=== PATIENT | male | born 2000 | race Caucasian/White ===

== ENCOUNTER → 2023-12-26 | Outpatient (CLI) | payer OTHER ==
[2023-12-26 12:46] LABS: IMMUNOGLOBULIN A 274.5 MG/DL (40-350)
[2023-12-26 12:50] LABS: FREE T4 1.19 NG/DL (0.89-1.76); THYROID STIMULATING HORMONE 2.346 uIU/ML (0.55-4.78)
== END ==
LOC: M LAB 11:46
PROVIDERS: ATTEND Internal Medicine Gastroenterology
DX: R19.4 Change in bowel habit (principal)

== ENCOUNTER → 2024-01-03 | Outpatient (CLI) | payer OTHER | LOC: M CARPUL 14:54 → EDUNIT# 01-04 09:00 | PROVIDERS: ATTEND Internal Medicine Critical Care Medicine | DX: R06.00 Dyspnea, unspecified (principal) ==

== ENCOUNTER → 2024-01-17 | Outpatient (CLI) | payer OTHER ==
[~2024-01-17] MED LIST: VITA100093 PO
== END ==
LOC: M PLALAB 15:56
PROVIDERS: ATTEND Obstetrics & Gynecology
DX: Z13.79 Encounter for other screening for genetic and chromosomal anomalies (principal)

== ENCOUNTER 2024-01-28 09:59 | Day surgery (SDC) | payer OTHER ==
[~2024-01-28] VITALS: Ht 167.6 cm; Wt 93.4 kg
[2024-01-28] MEDS: NS 1,000 ML IV ONE (11:40)
[2024-01-28] MEDS ORDERED: LIDOCAINE 2% 100MG/5ML SDV (FOR ANES.) As Ordered ONE (12:37)
[2024-01-28] MEDS ORDERED: fentaNYL 100 MCG/2 ML INJECTION As Ordered ONE (12:37)
[2024-01-28] MEDS ORDERED: propofoL 200 MG/20 ML VIAL As Ordered ONE (12:38)
[2024-01-28 14:20] VITALS: BP 125/74; O2SAT 96
== END 2024-01-28 14:32 | disposition home or self-care (01) ==
LOC: M OPP 09:59 → EDUNIT# 13:00 → M OPP 14:32
PROVIDERS: ATTEND Internal Medicine Gastroenterology
DX: K51.40 Inflammatory polyps of colon without complications (principal); K64.8 Other hemorrhoids; K92.1 Melena; K21.00 Gastro-esophageal reflux disease with esophagitis, without bleeding; R12 Heartburn; F17.220 Nicotine dependence, chewing tobacco, uncomplicated
CPT/HCPCS: 43239; 45380; 45385; 88305; J3010

== ENCOUNTER → 2024-03-07 | Outpatient (CLI) | payer OTHER ==
[~2024-03-07] MED LIST changes: +METHACHOLINE KIT (6 VIAL.NEB PREMIX) INH ONE
== END ==
LOC: EDUNIT# 01-11 09:00 → M CARPUL 07:31
PROVIDERS: ATTEND Internal Medicine Critical Care Medicine
DX: R06.00 Dyspnea, unspecified (principal)
CPT/HCPCS: 94070; J7674

== ENCOUNTER → 2024-04-24 | Outpatient (CLI) | payer OTHER ==
[~2024-04-24] MED LIST changes: -METHACHOLINE KIT (6 VIAL.NEB PREMIX) INH ONE
== END ==
LOC: M CARPUL 11:14
PROVIDERS: ATTEND Internal Medicine Critical Care Medicine
DX: R06.00 Dyspnea, unspecified (principal)

== ENCOUNTER → 2024-06-30 | Outpatient (CLI) | payer OTHER ==
[~2024-06-30] MED LIST changes: +ISOVUE-370 76% 100ML VIAL As Ordered ONE
== END ==
LOC: M RAD 09:07
PROVIDERS: ATTEND Internal Medicine Gastroenterology
DX: K62.5 Hemorrhage of anus and rectum (principal); K76.0 Fatty (change of) liver, not elsewhere classified
CPT/HCPCS: 74177; Q9967

== ENCOUNTER → 2024-08-02 | Outpatient (CLI) | payer OTHER ==
[~2024-08-02] MED LIST changes: -ISOVUE-370 76% 100ML VIAL As Ordered ONE
[2024-08-02 11:31] LABS: C REACTIVE PROTEIN QUANTITATIV < 0.50 MG/DL (<1.0); CPK CREATINE PHOSPHOKINASE 344 U/L (46-171)
[2024-08-02 11:35] LABS: IMMUNOGLOBULIN E 290.1 IU/ML (0-378)
[2024-08-03 16:16] LABS: ALDOLASE 7.3 U/L (< OR = 8.1)
[2024-08-03 19:45] LABS: BIRCH IGE 2.81 kU/L (<0.10); COMMON RAGWEED SHORT IGE 0.78 kU/L (<0.10); D001 IGE D PTERONYSSINUS < 0.10 kU/L (<0.10); D002-IGE D FARINAE < 0.10 kU/L (<0.10); E005-IGE DOG DANDER 0.52 kU/L (<0.10); ELM IGE 0.99 kU/L (<0.10); I006 IGE COCKROACH 0.17 kU/L (<0.10); IMMUNOGLOBULIN E FOR ALLERGENS 315 kU/L (<OR=114); M002 IGE CLADOSPORIUM HERBARU < 0.10 kU/L (<0.10); M003 IGE ASPERGILLUS FUMIGATU < 0.10 kU/L (<0.10); M006 IGE ALTERNIA ALTERNATA < 0.10 kU/L (<0.10); M1-PENICILLIUM NOTATUM < 0.10 kU/L (<0.10); MOUSE URINE IGE < 0.10 kU/L (<0.10); MUGWORT IGE 0.16 kU/L (<0.10); ROUGH PIGWEED IGE 0.16 kU/L (<0.10); SHEEP SORREL IGE 0.29 kU/L (<0.10); SYCAMORE IGE 0.21 kU/L (<0.10); T001-IGE MAPLE BOX ELDER 0.34 kU/L (<0.10); T014 COTTONWOOD IGE 0.39 kU/L (<0.10); TIMOTHY GRASS IGE > 100 kU/L (<0.10); WALNUT TREE IGE 0.53 kU/L (<0.10); WHITE ASH IGE 0.43 kU/L (<0.10); WHITE MULBERRY IGE 0.14 kU/L (<0.10)
[2024-08-04 08:02] LABS: ANA SCREEN, IFA NEGATIVE (NEGATIVE)
[2024-08-05 01:12] LABS: E094-IgE Fel d 1 12.9 kU/L (<0.10); E101-IgE Can f 1 < 0.10 kU/L (<0.10); E102-IgE Can f 2 < 0.10 kU/L (<0.10); E226 IgE Can f 5 < 0.10 kU/L (<0.10); E228-IgE Fel d 4 < 0.10 kU/L (<0.10); E229 IGE CAN F 4 < 0.10 kU/L (<0.10); E230 IGE CAN F 6 < 0.10 kU/L (<0.10); E231 IGE FEL D 7 < 0.10 kU/L (<0.10)
== END ==
LOC: M LAB 10:33
PROVIDERS: ATTEND Internal Medicine Critical Care Medicine
DX: R94.2 Abnormal results of pulmonary function studies (principal)

== ENCOUNTER 2024-09-15 08:41 | Day surgery (SDC) | payer OTHER ==
[~2024-09-15] VITALS: Ht 167.6 cm; Wt 97.9 kg
[~2024-09-15 08:41] MED LIST changes: +DICY1CAP8 PO; +ERGO500029 PO; +MONT-5 PO; +SYMB16INH INH
[2024-09-15] MEDS ORDERED: fentaNYL 100 MCG/2 ML INJECTION As Ordered ONE (10:13)
[2024-09-15] MEDS ORDERED: propofoL 200 MG/20 ML VIAL As Ordered ONE (10:15)
[2024-09-15] MEDS ORDERED: ONDANSETRON 4MG 2ML VIAL As Ordered ONE (10:15)
[2024-09-15] MEDS ORDERED: LIDOCAINE 2% 100MG/5ML SDV (FOR ANES.) As Ordered ONE (10:15)
[2024-09-15 10:32] VITALS: TEMP 98.7
[2024-09-15 10:48] VITALS: BP 119/56; O2SAT 97
== END 2024-09-15 11:05 | disposition home or self-care (01) ==
LOC: M OPP 08:41
PROVIDERS: ATTEND Surgery
DX: K44.9 Diaphragmatic hernia without obstruction or gangrene (principal); K20.90 Esophagitis, unspecified without bleeding; G47.30 Sleep apnea, unspecified; Z91.048 Other nonmedicinal substance allergy status; Z79.51 Long term (current) use of inhaled steroids; Z79.899 Other long term (current) drug therapy
CPT/HCPCS: 43239; 88305; J2405; J3010